=== PATIENT | male | born 1995 | race Hispanic/Latino ===

== ENCOUNTER 2017-10-14 10:56 | Emergency (ER) | payer SELFPAY ==
[2017-10-14 11:52] LABS: Bilirubin Negative (Negative); Blood, Urine Negative (Negative); Glucose, Urine (Dipstick) Negative (Negative); Ketone, Urine 40 mg/dL (Negative); Nitrite Negative (Negative); Protein, Urine (Dipstick) Trace mg/dL (Neg-Trace)
[2017-10-14] MEDS ORDERED: Ketorolac Tromethamine 30 MG/ML VIAL ONE (13:13)
[2017-10-14 13:26] LABS: #Eosinphils 0.1 thou/uL (0.0-0.7); #Lymphocytes 0.7 thou/uL (1.20-3.40); #Monocytes 0.9 thou/uL (0.11-0.59); #Neutrophils 7.2 thou/uL (1.40-6.50); %Basophils 0.4 % (0.0-1.0); %Eosinophils 0.7 % (0.0-10.0); %Lymphocytes 8.2 % (21.0-51.0); %Monocytes 10.5 % (0.0-10.0); Hematocrit 46.3 % (42.0-52.0); Mean Platelet Volume 8.5 fL (7.4-10.4); Red Blood Cell (RBC) Count 4.96 mill/uL (4.70-6.10)
[2017-10-14 13:41] LABS: ALT (SGPT) 20 U/L (8-55); AST (SGOT) 21 U/L (5-34); Alkaline Phosphatase 98 U/L (40-150); Anion Gap 18 mmol/L (10-20); BUN (Urea Nitrogen) 14 mg/dL (8.9-20.6); Bilirubin, Total 1.1 mg/dL (0.2-1.2); Calc. Creatinine Clearance 0 mL/min (70-130); Calcium 9.7 mg/dL (7.8-10.44); Carbon Dioxide 21 mmol/L (22-29); Chloride 97 mmol/L (98-107); Estimated GFR-MDRD Greater than 90; Globulin 3.2 g/dL (2.4-3.5); Lipase 7 U/L (8-78); Protein, Total 8.2 g/dL (6.0-8.3)
[2017-10-14] MEDS ORDERED: Iopamidol 370 76% 50 ML VIAL FS ONE (14:04)
--- NOTE | 2017-10-14 15:36 | CT ---
CT OF ABDOMEN AND PELVIS PERFORMED WITH CONTRAST ENHANCEMENT: 10/14/17 HISTORY: Abdominal pain with more right sided flank pain. The lung bases are clear. The liver and spleen show no focal abnormalities. Pancreas and gallbladder regions appears unremarkab le. Right and left adrenal glands and right and left kidneys are normal in size. No obstruction of either kidney or renal calculi are identified. I do not see any signs of the ureteral calculus. There is no significant periaortic adenopathy. There is no significant mesenteric adenopathy identified. CT OF PELVIS PERFORMED WITH CONTRAST ENHANCEMENT: The appendix is somewhat difficult to visualize in its entirety but does not appear dilated. There is no adenopathy, mass or free fluid. IMPRESSION: No acute abnormalities of the abdomen or pelvis. POS: PRASHANTH
== END 2017-10-14 16:05 | disposition home or self-care (01) ==
LOC: ERS 10:56
DX: R10.31 Right lower quadrant pain (principal); R10.11 Right upper quadrant pain
CPT/HCPCS: 74177; 80053; 81003; 83690; 85025; 96361; 96374; J1885

== ENCOUNTER 2018-06-06 13:37 | Outpatient (CLI) | payer OTHER ==
--- NOTE | 2018-06-06 15:10 | CT ---
BRAIN CT WITHOUT IV CONTRAST: HISTORY: A 23-year-old male with a history of epidural hematoma following an accident. TECHNIQUE: Multiple left-sided skull defects are noted, including left craniotomy change. FINDINGS: Small extraaxial low attenuation collection noted adjacent to the left frontal bone, measuring approx imately 0.5 cm in maximum thickness. No significant mass effect or midline shift. No prior radiogra phs. IMPRESSION: Postoperative left frontal craniotomy. Small extraaxial low attenuation collection, up to 0.5 cm in thickness, without significant midline shift. No evidence for acute hemorrhage. No old studies. POS: DONNA
== END 2018-06-06 13:38 | disposition home or self-care (01) ==
LOC: RAD 13:37 → CT 13:38
PROVIDERS: ATTEND Surgery
DX: S06.4X9A Epidural hemorrhage with loss of consciousness of unspecified duration, initial encounter (principal)
CPT/HCPCS: 70450

== ENCOUNTER 2018-08-14 06:42 | Day surgery (SDC) | payer OTHER ==
[2018-08-13 14:34] VITALS: BMI 19.9
[2018-08-14 08:55] LABS: #Basophils 0.1 thou/uL (0.0-0.2); #Eosinphils 0.4 thou/uL (0.0-0.7); #Lymphocytes 2.5 thou/uL (1.20-3.40); #Monocytes 0.6 thou/uL (0.11-0.59); #Neutrophils 3.7 thou/uL (1.40-6.50); %Basophils 0.7 % (0.0-1.0); %Eosinophils 5.1 % (0.0-10.0); %Lymphocytes 34.3 % (21.0-51.0); %Monocytes 8.5 % (0.0-10.0); %Neutrophils 51.4 % (42.0-75.0); Hemoglobin 15.2 g/dL (14.0-18.0); Mean Corpuscular HGB CONC 33.6 g/dL (32.0-36.0); Mean Corpuscular Hemoglobin 31.1 pg (27.0-31.0); Mean Corpuscular Volume 92.6 fL (78.0-98.0); Mean Platelet Volume 7.2 fL (7.4-10.4); Platelet Count 261 thou/uL (130-400); RBC Distribution Width 11.7 % (11.5-14.5); Red Blood Cell (RBC) Count 4.88 mill/uL (4.70-6.10); White Blood Cell (WBC) Count 7.2 thou/uL (4.8-10.8)
[2018-08-14] MEDS ORDERED: CEFAZOLIN/Water 2 GM/20 ML SYRINGE ONE (09:11)
[2018-08-14] MEDS ORDERED: Midazolam HCl 2 mg/2 ml Vial ONE (09:11)
[2018-08-14] MEDS ORDERED: Bacitracin Zinc Ointment 30 gm TUBE ONE (09:54)
[2018-08-14] MEDS ORDERED: Bupivacaine PF 0.5% 30 ML VIAL ONE (09:54)
[2018-08-14] MEDS ORDERED: Betamet Acet/Betamet Na Ph 30 MG/5 ML VIAL ONE (09:55)
[2018-08-14] MEDS ORDERED: Fentanyl 100 MCG/2 ML VIAL ONE (10:01)
[2018-08-14] MEDS ORDERED: Ketorolac Tromethamine 30 MG/ML VIAL ONE ×2 (11:38→14:29)
[2018-08-14] MEDS ORDERED: Meperidine HCl/PF 25 MG/ML VIAL ONE (11:39)
--- NOTE | 2018-08-14 11:56 | OP ---
DATE OF PROCEDURE: 08/14/2018 SURGEON: Dr. Foster Montoya PREOPERATIVE DIAGNOSIS: Left wrist glass foreign body. FINDINGS: Foreign body granuloma surrounding wrist glass foreign body. PROCEDURE PERFORMED: 1. Excision of foreign body granuloma. 2. Excision of glass foreign body. BLOOD LOSS: Less than 5 mL. TOURNIQUET TIME: 4 minutes. ANESTHESIA: General LMA augmented by 10 mL 0.5% Marcaine block, 5 given before the surgery, 5 given after, antonette-incisional technique without epinephrine. INDICATION: Painful subcutaneous mass with possible granuloma around it over the central palmar aspe ct of the thenar region. DESCRIPTION OF PROCEDURE: After successful general LMA technique augmented by the Marcaine listed ab ove [place] [facility] achieved a successful anesthesia, the limb was prepped and draped. Timeout w as done appropriately. We exsanguinated the limb after an elevated pressure on a tourniquet put it a t the mid arm position with a 225 mmHg pressure. Then, we made a zigzag incision along the mass, sta tracy ulnar to the mass to avoid any cutaneous nerve involvement. We dissected down 360 degrees aroun d it, saw a granuloma cavity ulnar and superficial, removed that first and then that allowed us to se e the glass foreign body. We lifted the glass foreign body out, cleaned it and sent it with the yuliana ent back to recovery room. We then irrigated the cavity, finishing the debridement that we had start ed and then once the cavity was completely clean, we released the tourniquet and obtained hemostasis. We closed the wound with a simple 4-0 nylon interrupted pattern and finished the remaining 8 mL of 0.5% Marcaine injection around the antonette-incisional region. A soft dressing was applied with Scott wrap and the patient left the operating room without evidence of anesthetic or operative complication.
[2018-08-14] MEDS ORDERED: Lidocaine 1% PF 5 ML VIAL ONE (14:29)
[2018-08-14] MEDS ORDERED: PROPOFOL 200 MG/20 ML VIAL ONE (14:29)
[2018-08-14] MEDS ORDERED: Dexamethasone 20 MG/5 ML VIAL ONE (14:29)
[2018-08-14] MEDS ORDERED: Ondansetron HCl/PF 4 MG/2 ML Vial ONE (14:29)
--- NOTE | 2018-08-21 12:42 | RAD ---
LEFT HAND TWO VIEWS: History: 23-year-old male with history of glass removal. FINDINGS: Two portable fluoroscopic spot images demonstrates a metal probe extending down to an abnormal opacit y within the volar soft tissues of the wrist. Second portable fluoroscopic spot image does not re-dem onstrate the focal abnormal opacity. IMPRESSION: Fluoroscopic spot images performed during glass removal.
== END 2018-08-14 12:42 | disposition home or self-care (01) ==
LOC: SDC 06:42
PROVIDERS: ATTEND Orthopaedic Surgery Hand Surgery
PROC: 0JBH0ZZ Excision of Left Lower Arm Subcutaneous Tissue and Fascia, Open Approach (ICD-10-PCS; principal; 2018-08-14)
DX: L92.3 Foreign body granuloma of the skin and subcutaneous tissue (principal); V89.2XXA Person injured in unspecified motor-vehicle accident, traffic, initial encounter
CPT/HCPCS: 76001; 85025; 85652; 96372; 96374; J0702; J1100; J1885; J2001; J2175; J2250; J2405; J2704; J3010; S0020